=== PATIENT | male | born 1975 | race Caucasian/White ===

== ENCOUNTER 2023-08-23 08:13 | Day surgery (SDC) | payer BC ==
[~2023-08-23 08:13] MED LIST: Sodium Chloride 0.9% 10 ML Syringe FLUSH PRN; Sodium Chloride 0.9% 2.5 ML Syringe FLUSH PRN; Sodium Chloride 0.9% 20 ML SDV IV PRN
[2023-08-23] MEDS: Lactated Ringers 1,000 ML IV SCH (08:41)
[2023-08-23] MEDS ORDERED: propofoL 50 ML ONE (09:25)
== END 2023-08-23 10:27 | disposition home or self-care (01) ==
LOC: MW.SDS 08:13
PROVIDERS: ATTEND Surgery
DX: Z12.11 Encounter for screening for malignant neoplasm of colon (principal); K63.5 Polyp of colon; F17.210 Nicotine dependence, cigarettes, uncomplicated
CPT/HCPCS: 45380; J2704; J7120; 00811